=== PATIENT | female | born 1955 ===

== ENCOUNTER 2017-09-13 13:45 | Emergency (ER) | payer MEDICARE, MEDICAID ==
[2017-09-13 13:46] VITALS: BMI 28.0
[2017-09-13 13:57] VITALS: BP 161/63; PULSE 76; RESP 19; TEMP 95.5; O2SAT 99
--- NOTE | 2017-09-13 15:07 | ED PDOC ---
Upper Extremity Pain/Injury Time Seen by Provider: 09/13/17 14:03 Chief Complaint (Nursing): Upper Extremity Problem/Injury Chief Complaint (Provider): Right shoulder pain History Per: Patient History/Exam Limitations: no limitations Additional Complaint(s): 62 y/o female presents to the emergency department with a complaint of a right shoulder pain that radiates to the neck (right side) and down the right arm for about 1 month. Associated with tingling and numbness of the arm and shoulder. Patient reports she contacted her surgeon who said it was a pinched nerve and recommended physical therapy although patient says she had physical therapy in the past and does not help. States she rubs mineral ice for the pain with occasional use of Advil with minimal relief. Denies fever, chills, or any further medical complaints. Of note, patient had right shoulder surgery about 6-7 years ago and had back surgery for herniated discs about 1 year ago (July 2016). Past Medical History Reviewed: Historical Data, Nursing Documentation, Vital Signs Vital Signs: Last Vital Signs Temp 95.5 F L 09/13/17 13:54 Pulse 76 09/13/17 13:54 Resp 19 09/13/17 13:54 BP 161/63 H 09/13/17 13:54 Pulse Ox 99 09/13/17 13:54 - Medical History PMH: Anemia, Anxiety, Asthma, Bronchitis, Colonic Polyps, COPD, Depression, Diabetes, Gastritis, Gall Bladder Disease, HTN, Hypercholesterolemia, Pancreatitis, Pneumonia Denies: Fractures, Osteoporosis, Chronic Kidney Disease - Surgical History Surgical History: Cholecystectomy, Endoscopy - Family History Family History: States: Unknown Family Hx - Immunization History Hx Tetanus Toxoid Vaccination: No Hx Influenza Vaccination: No Hx Pneumococcal Vaccination: No - Home Medications Home Medications: Ambulatory Orders Medication Instructions Recorded Albuterol Sulfate [Proair Hfa] 2 puff IN Q6 05/02/13 Insulin Aspart, Recombinant 0 - 10 units SUBCUT TID 05/02/13 [Novolog] Insulin Glargine,Hum.rec.anlog 24 unit SC HS 05/02/13 [Lantus] Lisinopril 10 mg PO DAILY 05/02/13 Metformin Hydrochloride [Metformin] 500 mg PO BID 05/02/13 Crestor 10 mg PO DAILY 08/30/13 Pantoprazole [Protonix EC Tab] 40 mg PO DAILY #0 ect 04/02/15 Famotidine [Pepcid] 1 tab PO BID #14 tab 07/03/16 Ketorolac Tromethamine [Toradol] 1 tab PO Q6H #20 tab 07/03/16 Cyclobenzaprine [Cyclobenzaprine 10 mg PO BID #14 tab 09/13/17 HCl] Diclofenac Sodium 10 - 20 gm TP BID #1 gel..gram. NS 09/13/17 - Allergies Allergies/Adverse Reactions: Allergies Allergy/AdvReac Type Severity Reaction Status Date / Time acetaminophen [From Percocet] Allergy RASH Verified 07/16/16 10:25 morphine Allergy RASH Verified 07/03/16 10:02 oxycodone HCl [From Percocet] Allergy RASH Verified 07/16/16 10:25 tramadol Allergy RASH Verified 07/16/16 10:25 Review of Systems ROS Statement: Except As Marked, All Systems Reviewed And Found Negative (As per HPI, otherwise negative) Constitutional: Negative for: Fever, Chills Musculoskeletal: Positive for: Neck Pain (Right side), Shoulder Pain (Right), Arm Pain (Right), Other (Tingling and numbness) Physical Exam - Reviewed Nursing Documentation Reviewed: Yes Vital Signs Reviewed: Yes - Physical Exam Appears: Positive for: Non-toxic, No Acute Distress Head Exam: Positive for: ATRAUMATIC, NORMAL INSPECTION, NORMOCEPHALIC Skin: Positive for: Normal Color, Warm, Dry Neck: Positive for: Normal, Painless ROM (Spasm noted to the SCM), Supple. Negative for: Pain On Movement Of Neck (No c-spine tenderness) Extremity: Positive for: Normal ROM (Full range of motion of the right arm and right shoulder. Able to pronate and supinate the right shoulder. Neurovascularly intact. Axillary nerves intact. ). Negative for: Other (No AC joint tenderness) Neurologic/Psych: Positive for: Alert, Oriented (x3) - ECG O2 Sat by Pulse Oximetry: 99 (RA) Pulse Ox Interpretation: Normal Medical Decision Making Medical Decision Making: Time: 1426 Initial impression: Shoulder pain Initial plan: --Toradol 30 mg IM --Reevaluation Time: 1500 Upon provider reevaluation patient is feeling better, is medically stable, and requires no further treatment in the ED at this time. Patient will be discharged home with Rx for Cyclobenzaprine HCl 10 mg and Diclofenac Sodium 10- 20 gm. Counseling was provided and all questions were answered regarding diagnosis and need for follow up with [facility]. There is agreement to discharge plan. Return if symptoms persist or worsen. Clinical Impression: Shoulder Pain Scribe Attestation: Documented by May Horton, acting as a scribe for Estrellita Haines PA-C Provider Scribe Attestation: All medical record entries made by the Scribe were at my direction and personally dictated by me. I have reviewed the chart and agree that the record accurately reflects my personal performance of the history, physical exam, medical decision making, and the department course for this patient. I have also personally directed, reviewed, and agree with the discharge instructions and disposition. Disposition - Clinical Impression Clinical Impression: Shoulder pain - Patient ED Disposition Is Patient to be Admitted: No Counseled Patient/Family Regarding: Diagnosis, Need For Followup, Rx Given - Disposition Referrals: [facility] [place] [Outside] Disposition: Routine/Home Disposition Time: 15:00 Condition: STABLE Prescriptions: Cyclobenzaprine [Cyclobenzaprine HCl] 10 mg PO BID #14 tab Diclofenac Sodium 10 - 20 gm TP BID #1 gel..gram. NS Instructions: Arthralgia (ED) Forms: [employer] (Portuguese)
== END 2017-09-13 15:00 | disposition home or self-care (01) ==
LOC: H.ER 13:45
DX: M25.511 Pain in right shoulder (principal); E11.9 Type 2 diabetes mellitus without complications; E78.00 Pure hypercholesterolemia, unspecified; I10 Essential (primary) hypertension; Z79.4 Long term (current) use of insulin; Z88.5 Allergy status to narcotic agent
CPT/HCPCS: 96372; 99282; J1885